=== PATIENT | male | born 1965 | race Caucasian/White ===

== ENCOUNTER 2017-06-30 18:14 | Observation (INO) | payer SELFPAY ==
[~2017-06-30] VITALS: Ht 170.2 cm; Wt 104.5 kg
[~2017-06-30 18:14] MED LIST: BACT800T5 PO; CEPH500C3 PO
[2017-06-30 18:15] VITALS: BP 140/106; PULSE 99; RESP 18; TEMP 97.8; O2SAT 99
[2017-06-30 19:04] LABS: BASOPHIL # 0.1 TH/MM3 (0-0.2); BASOPHIL % 1.3 % (0.0-2.0); EOSINOPHIL # 0.1 TH/MM3 (0-0.4); EOSINOPHIL % 2.2 % (0.0-4.0); HEMATOCRIT 45.8 % (39.0-51.0); LYMPH % 27.4 % (9.0-44.0); LYMPHOCYTE # 1.4 TH/MM3 (1.0-4.8); MEAN CELL VOLUME 95.8 FL (80.0-100.0); MEAN CORPUSCULAR HEMOGLOBIN 33.5 PG (27.0-34.0); MEAN CORPUSCULAR HGB CONC 34.9 % (32.0-36.0); MEAN PLATELET VOLUME 8.7 FL (7.0-11.0); MONOCYTE # 0.4 TH/MM3 (0-0.9); NEUT % 61.1 % (16.0-70.0); PLATELET COUNT 225 TH/MM3 (150-450); RED BLOOD COUNT 4.79 MIL/MM3 (4.50-5.90); RED CELL DISTRIBUTION WIDTH 12.9 % (11.6-17.2)
[2017-06-30 19:09] LABS: BICARBONATE 26.7 MEQ/L (21.0-32.0); BLOOD UREA NITROGEN 16 MG/DL (7-18); CALCIUM 9.2 MG/DL (8.5-10.1); CHLORIDE 100 MEQ/L (98-107); CREATININE 1.27 MG/DL (0.60-1.30); GLOMERULAR FILTRATION RATE 60 ML/MIN (>89); GLUCOSE,RANDOM 116 MG/DL (74-106); MAGNESIUM 2.1 MG/DL (1.5-2.5); SODIUM (NA) 133 MEQ/L (136-145)
[2017-06-30 19:13] LABS: TROPONIN I LESS THAN 0.02 NG/ML (0.02-0.05)
[2017-06-30] MEDS ORDERED: ASPI81CH6 CHEW (19:15)
[2017-06-30] MEDS ORDERED: AMLO10TA2 PO (19:15)
[2017-06-30] MEDS ORDERED: LOVA20TA PO (19:15)
[2017-06-30] MEDS ORDERED: LISI10TA3 PO (19:15)
[2017-06-30 19:16] VITALS: BP 107/75; PULSE 76; RESP 20; O2SAT 97
--- NOTE | 2017-06-30 19:17 | PD ---
HPI Chief Complaint: Chest Pain Time Seen by Provider: 19:15 Travel History International Travel<30 days: No Contact w/Intl Traveler<30days: No Traveled to known affect area: No History of Present Illness HPI The patient is a 51 year old male who presents to the [facility] [address] emergency department with a history of chest pain in the center of the chest that began 3 weeks ago. It is coming and going. It at times moves to the right chest. It is a burning sensation. Other lawson, he has a pressure sensation that is worsened with coughing that is present across his chest anteriorly. He denies any recent worsening cough or congestion. He smokes 1/2 ppd. He denies having any neck pain, shortness of breath, abdominal pain, vomiting, diarrhea, urinary symptoms , lower extremity edema, calf pain, or erythema, or or neurologic symptoms. He denies any prior history of DVT, PE, MS, or congestive heart failure. His last stress test was reportedly over a year ago. The patient is followed by Dr. Smith a local back facer for his cardiac care. He reports that he is followed by Dr. Smith for hypertension. The patient denies having any worsening recent indigestion or acid reflux symptoms. FORMERLY [facility] Past Medical History Narrative Medical The patient's past medical history is significant for hypertension, hyperlipidemia, tobacco use. Cardiovascular Problems: Yes (HTN, hyperlipidemia) High Cholesterol: Yes Hypertension: Yes Immunizations Current: Yes Past Surgical History Narrative Surgical The patient's past surgical history is significant for left partial foot amputation due a water sking accident, right ankle ORIF. Social History Alcohol Use: Yes (2 xper week) Tobacco Use: Yes (1/2 PPD) Substance Use: No Allergies-Medications (Allergen,Severity, Reaction): Coded Allergies: No Known Allergies (Verified Allergy, Unknown, 06/30/17) *MDRO Multi-Drug Resistant Organism (Verified Adverse Reaction, Unknown, ) MRSA arm wound 11/06/14 Reported Meds & Prescriptions Reported Meds & Active Scripts Active Reported Aspirin Low Dose (Aspirin) 81 Mg Chew 81 Mg CHEW DAILY Amlodipine (Amlodipine Besylate) 10 Mg Tab 10 Mg PO DAILY Lovastatin 20 Mg Tab 20 Mg PO DAILY Lisinopril 10 Mg Tab 10 Mg PO DAILY Review of Systems Except as stated in HPI: all other systems reviewed are Neg General / Constitutional: No: Fever Eyes: No: Visual changes HENT: No: Headaches, Congestion Cardiovascular: Positive: Chest Pain or Discomfort, No: Diaphoresis, Dyspnea on exertion Respiratory: Positive: Cough, No: Shortness of Breath Gastrointestinal: No: Nausea, Vomiting, Abdominal Pain Genitourinary: No: Dysuria Musculoskeletal: No: Pain Skin: No Rash Neurologic: No: Weakness, Focal Abnormalities, Change in Mentation, Slurred Speech, Sensory Disturbance Psychiatric: No: Depression Endocrine: No: Polydipsia Hematologic/Lymphatic: No: Easy Bruising Physical Exam Narrative General: The patient is a well-developed well-nourished male in no acute distress. Head and Neck exam: Head is normocephalic atraumatic. Eyes: EOMI, pupils are equal round and reactive to light. Nose: Midline septum with pink mucous membranes Mouth: Dentition unremarkable. Moist mucus membranes. Posterior oropharynx is not erythematous. No tonsillar hypertrophy. Uvula midline. Airway patent. Neck: No palpable lymphadenopathy. No nuchal rigidity. No thyromegaly. Cardiovascular: Regular rate and rhythm without murmurs, gallops, or rubs. Lungs: Clear to auscultation bilaterally. No wheezes, rhonchi, or rales. Abdomen: Soft, without tenderness to palpation in all 4 quadrants of the abdomen. No guarding, rebound, or rigidity. Normal bowel sounds are audible. No tenderness on palpation of McBurney's point. Extremities: No clubbing, cyanosis, or edema. 2+ pulses in all 4 extremities. The patient has deformity of his right lower extremity related to prior injury with skin grafting. Back: No costovertebral angle tenderness to palpation. Neurologic Exam: Grossly nonfocal. Skin Exam: No rash noted. Intact skin that is warm and dry. Data Data Last Documented VS Vital Signs Date Time Temp Pulse Resp B/P (MAP) Pulse Ox O2 Delivery O2 Flow Rate FiO2 06/30/17 19:16 76 20 107/75 (86) 97 Room Air 06/30/17 18:15 97.8 Orders Orders Electrocardiogram (06/30/17 18:21) Basic Metabolic Panel (Bmp) (06/30/17 18:21) Ckmb (Isoenzyme) Profile (06/30/17 18:21) Complete Blood Count With Diff (06/30/17 18:21) Magnesium (Mg) (06/30/17 18:21) Prothrombin Time / Inr (Pt) (06/30/17 18:21) Act Partial Throm Time (Ptt) (06/30/17 18:21) Troponin I (06/30/17 18:21) Chest, Pa & Lat (06/30/17 18:21) CKMB (06/30/17 18:16) CKMB% (06/30/17 18:16) D-Dimer (06/30/17 19:16) Aspirin Chew (Aspirin Chew) (06/30/17 19:30) Nitroglycerin 2% Oint (Nitroglycerin 2% (06/30/17 19:30) Admit Order (Ed Use Only) (06/30/17 20:40) Labs Laboratory Tests Test 06/30/17 18:16 White Blood Count 5.0 TH/MM3 Red Blood Count 4.79 MIL/MM3 Hemoglobin 16.0 GM/DL Hematocrit 45.8 % Mean Corpuscular Volume 95.8 FL Mean Corpuscular Hemoglobin 33.5 PG Mean Corpuscular Hemoglobin Concent 34.9 % Red Cell Distribution Width 12.9 % Platelet Count 225 TH/MM3 Mean Platelet Volume 8.7 FL Neutrophils (%) (Auto) 61.1 % Lymphocytes (%) (Auto) 27.4 % Monocytes (%) (Auto) 8.0 % Eosinophils (%) (Auto) 2.2 % Basophils (%) (Auto) 1.3 % Neutrophils # (Auto) 3.0 TH/MM3 Lymphocytes # (Auto) 1.4 TH/MM3 Monocytes # (Auto) 0.4 TH/MM3 Eosinophils # (Auto) 0.1 TH/MM3 Basophils # (Auto) 0.1 TH/MM3 CBC Comment DIFF FINAL Differential Comment Prothrombin Time 10.3 SEC Prothromb Time International Ratio 1.0 RATIO Activated Partial Thromboplast Time 27.4 SEC D-Dimer Quantitative (PE/DVT) 0.33 MG/L FEU Blood Urea Nitrogen 16 MG/DL Creatinine 1.27 MG/DL Random Glucose 116 MG/DL Calcium Level 9.2 MG/DL Magnesium Level 2.1 MG/DL Sodium Level 133 MEQ/L Potassium Level 3.9 MEQ/L Chloride Level 100 MEQ/L Carbon Dioxide Level 26.7 MEQ/L Anion Gap 6 MEQ/L Estimat Glomerular Filtration Rate 60 ML/MIN Total Creatine Kinase 129 U/L Creatine Kinase MB 0.7 NG/ML Troponin I LESS THAN 0.02 NG/ML MDM Medical Decision Making Medical Screen Exam Complete: Yes Emergency Medical Condition: Yes Medical Record Reviewed: Yes Interpretation(s) Last Impressions Chest X-Ray 06/30/17 182 Signed Impressions: Service Date/Time: Friday, June 30, 2017 18:52 - CONCLUSION: 1. No acute disease. 2. Age-indeterminate lower thoracic compression fracture. Juaquin Ceron Jr., MD Differential Diagnosis Acute coronary syndrome, versus musculoskeletal strain, versus pulmonary embolism, versus pleurisy, versus costochondritis, versus acid reflux Narrative Course During the course of the patients emergency department visit, the patients history, examination, and differential diagnosis were reviewed with the patient. The patient was placed on a systems qa analyst with oximetry and frequent blood pressure monitoring. The patient had IV access obtained and blood work sent for analysis. The patient had an ECG done on arrival that shows no acute ST segment elevation. The patient was initially provided aspirin 324 mg by mouth 1. Nitroglycerin 1 inch of paste was ordered to be placed in the chest wall. The patients laboratory studies were reviewed and remarkable for a CBC that is within normal limits, basic metabolic profile remarkable for a sodium of 133, glucose 116, initial set of cardiac enzymes within normal limits. PT PTT within normal limits, d-dimer 0.33 decreasing the likelihood of pulmonary embolism in this patient with no other significant risk factors Radiology studies were reviewed and remarkable for a chest x-ray that shows no acute cardiopulmonary disease, age indeterminate lower thoracic compression fracture. The patient will be admitted to the chest pain center for rule out serial cardiac enzyme protocol followed by a consideration of stress testing given his risk factors for coronary artery disease of hypertension, hyperlipidemia, and tobacco use. The patients results were discussed with the patient, including the plan of care. I explained that further testing and/ or monitoring is indicated based on the patients history, examination, and/ or laboratory findings. Therefore, I recommended admission for additional evaluation. The patient expressed understanding and was agreeable with this plan. The patient was admitted to the hospital in stable condition and sent to a bed under the care of the chest pain center. Diagnosis Primary Impression: Chest pain, rule out acute myocardial infarction Admitting Information Admitting Physician Requests: Cami Gomez MD Jun 30, 2017 19:17
[2017-06-30 19:18] LABS: PROTHROMBIN TIME - PATIENT 10.3 SEC (9.8-11.6)
--- NOTE | 2017-06-30 19:25 | RADRPT ---
EXAM DATE/TIME: 06/30/2017 18:52 [facility] COMPARISON: No previous studies available for comparison. INDICATIONS : Chest pain MEDICAL HISTORY : Hypertension. SURGICAL HISTORY : None. ENCOUNTER: Initial ACUITY: 4 - 6 days PAIN SCORE: 5/10 LOCATION: Bilateral chest FINDINGS: PA and lateral views of the chest demonstrate the lungs to be symmetrically aerated without evidence of mass, infiltrate or effusion. The cardiomediastinal contours are unremarkable. A compression defo rmity is seen involving the lower thoracic spine. Age-indeterminate on this study. CONCLUSION: 1. No acute disease. 2. Age-indeterminate lower thoracic compression fracture. Juaquin Ceron Jr., MD on June 30, 2017 at 19:21 Board Certified Radiologist. This report was verified electronically.
[2017-06-30 19:30] VITALS: BP 109/87; PULSE 74; RESP 19; O2SAT 98
[2017-06-30] MEDS ORDERED: ASPIRIN 81 MG CHEW TAB CHEW ONE (19:30)
[2017-06-30] MEDS ORDERED: NITROGLYCERIN 2% OINT 1 GM PACKET TOPICAL ONE (19:30)
[2017-06-30 20:30] VITALS: BP 138/93; PULSE 68; RESP 20; O2SAT 98
[2017-06-30] MEDS ORDERED: ACETAMINOPHEN 500 MG CPLT PO PRN (21:15)
[2017-06-30] MEDS ORDERED: SODIUM CHLORIDE 0.9% FLUSH 10 ML FLUSH IV FLUSH PRN (21:15)
[2017-06-30] MEDS ORDERED: ONDANSETRON HCL 4 MG/2 ML VIAL IV PUSH PRN (21:15)
[2017-06-30 21:40] VITALS: BP 149/90; PULSE 71; RESP 20; O2SAT 98
[2017-06-30 22:00] VITALS: O2SAT 97
[2017-06-30 22:40] LABS: TROPONIN I LESS THAN 0.02 NG/ML (0.02-0.05)
[2017-07-01 00:06] VITALS: BP 131/90; PULSE 66; RESP 18; TEMP 98.1; O2SAT 96
[2017-07-01 01:26] LABS: TROPONIN I LESS THAN 0.02 NG/ML (0.02-0.05)
[2017-07-01] MEDS ORDERED: NITROGLYCERIN 0.4 MG SL 25 TABS/BTL SL PRN (07:15)
[2017-07-01 08:00] VITALS: BP 125/84; PULSE 66; PULSE 75; RESP 16; TEMP 97.1; O2SAT 95
--- NOTE | 2017-07-01 08:13 | HHI.HP ---
HPI Primary Care Physician [place], [place] Chief Complaint Chest pain History of Present Illness 51-year-old male with history of current smoker, hypertension and hyperlipidemia presents to emergency room for further evaluation chest pain. Onset 3 weeks ago. Location substernal. Characterized as "pain, difficult to describe, not sharp, not pressure." Patient is a poor historian. Severity moderate. Reports intermittent radiation to right inframammary area, while other times radiation to bilateral inframammary area. Duration constant waxing and waning in intensity. No associated symptoms of nausea, vomiting, dyspnea, or diaphoresis. No known precipitating or relieving factors. Reports activity does not make pain worse. Does not hurt to take a deep breath. Denies similar pain in the past. No known injury or trauma. Review of Systems General: No fatigue,weakness, fever, chills, or recent illness change in appetite. Has been his general state of health. HEENT: No HODGES, no vision changes, no nasal congestion or drainage, no dysphasia CV: As stated above. Denies current chest discomfort, however reports a "deep inside pain" point under both left and right rib cage. RESP: No SOB, cough, wheeze, asthma, COPD, or recent URI. GI: No nausea or vomiting, bowel changes, diarrhea, constipation, pain, distention, melena, blood in the stool. No change in appetite, no unintentional weight gain or weight loss : No dysuria, urgency, frequency EXT: No lower leg edema, no paraesthesias MS: No discomfort or change in ROM, injury or trauma. NEURO: No difficulty with balance, LOC, motor/sensory deficits PSYCH: No anxiety, depression. SKIN: No rashes, no concerning lesions Past Family Social History Allergies: Coded Allergies: No Known Allergies (Verified Allergy, Unknown, 06/30/17) *MDRO Multi-Drug Resistant Organism (Verified Adverse Reaction, Unknown, ) MRSA arm wound 11/06/14 Past Medical History Hypertension, hyperlipidemia Past Surgical History Left foot partially amputated due ski accident age 16. Reported Medications Reported Meds & Active Scripts Active Reported Aspirin Low Dose (Aspirin) 81 Mg Chew 81 Mg CHEW DAILY Amlodipine (Amlodipine Besylate) 10 Mg Tab 10 Mg PO DAILY Lovastatin 20 Mg Tab 20 Mg PO DAILY Lisinopril 20mg PO QD Active Ordered Medications Current Medications Medications (Trade) Dose Ordered Sig/Katharine Route Start Time Stop Time Status Last Admin (NS Flush) 2 ml UNSCH PRN IV FLUSH 06/30/17 21:15 (NS Flush) 2 ml BID IV FLUSH 07/01/17 09:00 (Tylenol) 500 mg Q4H PRN PO 06/30/17 21:15 (Zofran Inj) 4 mg Q6H PRN IV PUSH 06/30/17 21:15 (Pepcid) 20 mg BID PO 07/01/17 09:00 (Nitrostat Sl) 0.4 mg Q5M PRN SL 07/01/17 07:15 (Aspirin) 325 mg DAILY PO 07/01/17 09:00 Family History Noncontributory for early onset cardiovascular disease. Social History Known hypertension and hyperlipidemia. No known diabetes or coronary artery disease. Current smoker 1/2 pack daily. This is decreased from 1-1/2-2 packs daily. Alcohol socially. Works for [employer], lives with girlfriend. Grown children Past cardiac testing Summer 2015 [facility] reported to be unremarkable. Testing ordered by [facility] as routine for slight abnormality on EKG. Followed with Dr. Smith in the past for hypertension. Physical Exam Vital Signs Vital Signs Date Time Temp Pulse Resp B/P (MAP) Pulse Ox O2 Delivery O2 Flow Rate FiO2 07/01/17 00:06 98.1 66 18 131/90 (104) 96 06/30/17 22:00 97 06/30/17 21:40 71 20 149/90 (109) 98 Room Air 06/30/17 20:30 68 20 138/93 (108) 98 Room Air 06/30/17 19:30 74 19 109/87 (94) 98 Room Air 06/30/17 19:16 76 20 107/75 (86) 97 Room Air 06/30/17 19:12 76 23 97 Room Air 06/30/17 18:15 97.8 99 18 140/106 (117) 99 Physical Exam GENERAL: Alert WN, WD, NAD, pleasant, obese, male HEAD: NC, AT EYES: Sclera clear, conjunctiva without injection, pupils equal and round ENT: Mucous membranes pink and moist CV: RRR, without murmur, rub, gallop, no JVD, S1-S2 no S3-S4. RESP: Clear lungs throughout bilateral, no crackles, wheeze, rhonchi, symmetrical chest rise, nonlabored, able to speak in full sentences ABD: Soft, NT, ND, no masses, positive bowel tones, obese EXT: Pulses +2 Right DT and Left PT, no dependent edema, left foot partially amputated MS: Normal tone 4 extremities, no obvious deformities, full range of motion NEURO: CN II through CN XII grossly intact, motor strength 5/5 PSYCH: A+O 3, pleasant affect, appropriate speech, mood, insight and judgment. Mild anxiety noted, asking many questions to determine if he ask lung cancer. SKIN: Normal turgor, normal texture, no lesions, no rashes, brisk cap refill, even hair distribution Laboratory Laboratory Tests Test 06/30/17 18:16 06/30/17 21:50 07/01/17 00:15 White Blood Count 5.0 Red Blood Count 4.79 Hemoglobin 16.0 Hematocrit 45.8 Mean Corpuscular Volume 95.8 Mean Corpuscular Hemoglobin 33.5 Mean Corpuscular Hemoglobin Concent 34.9 Red Cell Distribution Width 12.9 Platelet Count 225 Mean Platelet Volume 8.7 Neutrophils (%) (Auto) 61.1 Lymphocytes (%) (Auto) 27.4 Monocytes (%) (Auto) 8.0 Eosinophils (%) (Auto) 2.2 Basophils (%) (Auto) 1.3 Neutrophils # (Auto) 3.0 Lymphocytes # (Auto) 1.4 Monocytes # (Auto) 0.4 Eosinophils # (Auto) 0.1 Basophils # (Auto) 0.1 CBC Comment DIFF FINAL Differential Comment Prothrombin Time 10.3 Prothromb Time International Ratio 1.0 Activated Partial Thromboplast Time 27.4 D-Dimer Quantitative (PE/DVT) 0.33 Blood Urea Nitrogen 16 Creatinine 1.27 Random Glucose 116 Calcium Level 9.2 Magnesium Level 2.1 Sodium Level 133 Potassium Level 3.9 Chloride Level 100 Carbon Dioxide Level 26.7 Anion Gap 6 Estimat Glomerular Filtration Rate 60 Total Creatine Kinase 129 113 178 Creatine Kinase MB 0.7 0.6 0.6 Troponin I LESS THAN 0.02 LESS THAN 0.02 LESS THAN 0.02 Result Diagram: 06/30/17 1816 06/30/17 1816 Imaging Last 48 hours Impressions Chest X-Ray 06/30/17 0160 Signed Impressions: Service Date/Time: Friday, June 30, 2017 18:52 - CONCLUSION: 1. No acute disease. 2. Age-indeterminate lower thoracic compression fracture. Juaquin Ceron Jr., MD Course EKG Normal sinus rhythm, normal axis, no ST or T-segment changes Caprini VTE Risk Assessment Caprini VTE Risk Assessment: No/Low Risk (score <= 1) Caprini Risk Assessment Model Point Value = 1 Point Value = 2 Point Value = 3 Point Value = 5 Age 41-60 Minor surgery BMI > 25 kg/m2 Swollen legs Varicose veins or History of unexplained or recurrent spontaneous Oral contraceptives or hormone replacement Sepsis (< 1 month) Serious lung disease, including pneumonia (< 1 month) Abnormal pulmonary function Acute myocardial infarction Congestive heart failure (< 1 month) History of inflammatory bowel disease Medical patient at bed rest Age 61-74 Arthroscopic surgery Major open surgery (> 45 min) Laparoscopic surgery (> 45 min) Malignancy Confined to bed (> 72 hours) Immobilizing plaster cast Central venous access Age >= 75 History of VTE Family history of VTE Factor V Leiden Prothrombin [id number] Lupus anticoagulant Anticardiolipin antibodies Elevated serum homocysteine Heparin-induced thrombocytopenia Other congenital or acquired thrombophilia Stroke (< 1 month) Elective arthroplasty Hip, pelvis, or leg fracture Acute spinal cord injury (< 1 month) Prophylaxis Regimen Total Risk Factor Score Risk Level Prophylaxis Regimen 0-1 Low Early ambulation 2 Moderate Order ONE of the following: *Sequential Compression Device (SCD) *Heparin 5000 units SQ BID 3-4 Higher Order ONE of the following medications: *Heparin 5000 units SQ TID *Enoxaparin/Lovenox 40 mg SQ daily (WT < 150 kg, CrCl > 30 mL/min) *Enoxaparin/Lovenox 30 mg SQ daily (WT < 150 kg, CrCl > 10-29 mL/min) *Enoxaparin/Lovenox 30 mg SQ BID (WT < 150 kg, CrCl > 30 mL/min) AND/OR *Sequential Compression Device (SCD) 5 or more Highest Order ONE of the following medications: *Heparin 5000 units SQ TID (Preferred with Epidurals) *Enoxaparin/Lovenox 40 mg SQ daily (WT < 150 kg, CrCl > 30 mL/min) *Enoxaparin/Lovenox 30 mg SQ daily (WT < 150 kg, CrCl > 10-29 mL/min) *Enoxaparin/Lovenox 30 mg SQ BID (WT < 150 kg, CrCl > 30 mL/min) AND *Sequential Compression Device (SCD) Assessment and Plan Assessment and Plan #1 Atypical chest pain-admitted to chest pain center. Ruled out with 3 sets of EKGs, cardiac enzymes, monitor overnight. Will be seen and evaluated by Dr. Amber Washington. Discussed likelihood of completed an additional cardiac stress test this morning. This will be determined after evaluation by operating table assembler. Patient is agreeable to plan of care. If further cardiac testing does not suggest ischemia, plan to discharge follow-up with his PCP. #2 Hypertension-continue amlodipine and lisinopril. Encouraged weight loss, increasing daily activity, and low sodium diet. #3 Hyperlipidemia-continue lovastatin #4 Tobacco use-strongly encouraged and stressed the importance of tobacco cessation. Instructed to quit smoking. 0845 seen and evaluated by Dr. Amber Washington. Proceed with CT coronaries with evaluation of aorta. Spoke with radiologist prior to ordering CT coronaries to determine best imaging study. D dimer negative. [address] coronaries recommend follow up with a stress test. Discussed with Dr. Washington. Proceed with lexiscan this evening. If lexiscan unremarkable, plan to discharge home later this evening with follow up his PCP. Patient remains agreeable to plan of care. Gemma Dover Jul 01, 2017 08:13
[2017-07-01] MEDS ORDERED: FAMOTIDINE 20 MG TAB PO SCH (09:00)
[2017-07-01] MEDS ORDERED: LISINOPRIL 20 MG TAB PO SCH (09:00)
[2017-07-01] MEDS ORDERED: SODIUM CHLORIDE 0.9% FLUSH 10 ML FLUSH IV FLUSH SCH (09:00)
[2017-07-01] MEDS ORDERED: ASPIRIN 325 MG TAB PO SCH (09:00)
[2017-07-01] MEDS ORDERED: PRAVASTATIN SOD 20 MG TAB PO SCH (09:00)
[2017-07-01] MEDS ORDERED: NITROGLYCERIN 0.4 MG SL 25 TABS/BTL SL ONE (11:45)
[2017-07-01 12:00] VITALS: BP 116/79; PULSE 58; RESP 16; TEMP 96.1; O2SAT 96
[2017-07-01] MEDS ORDERED: IOHEXOL 350 MG/ML 10 ML VIAL (for RAD DIAG) IVCONTRAST ONE (12:43)
--- NOTE | 2017-07-01 14:41 | RADRPT ---
EXAM DATE/TIME: 07/01/2017 12:13 [facility] COMPARISON: No previous studies available for comparison. INDICATIONS : Chest pain. IV CONTRAST: 90 cc Omnipaque 350 (iohexol) IV ; Cumulative dose for multiple exams. RADIATION DOSE: 8.73 CTDIvol (mGy) MEDICAL HISTORY : Hypertension. SURGICAL HISTORY : Left foot amputation. ENCOUNTER: Initial ACUITY: 3 weeks PAIN SCALE: 5/10 LOCATION: chest TECHNIQUE: Volumetric scanning was obtained through the heart. Images were acquired on a multislice multiple ro w detector helical scanner timed for acquisition during peak arterial contrast. Images were reconstr ucted using a retrospective gating algorithm including single sector and multi-sector algorithms at m ultiple phases of the cardiac cycle. Images were interpreted using a combination of 2D and 3D visual ization modes including curved planar reformation, thin slab maximum intensity projection and volume rendering. Using automated exposure control and adjustment of the mA and/or kV according to patient size, radiation dose was kept as low as reasonably achievable to obtain optimal diagnostic quality im ages. DICOM format image data is available electronically for review and comparison. FINDINGS: VESSEL ANALYSIS: Noncontrast CT calcium scoring examination was performed prior to the procedure. This demonstrated to naun calcium score 432. This places the patient in the 90th percentile rank. That means 10% of males f rom a 51-55 of a higher calcium score. Postcontrast imaging: DOMINANCE: The coronary system is right dominant. LEFT MAIN: Normal-sized vessel with a calcified atherosclerotic plaque in its distal segment. No hemodynamically significant lesion is identified. LAD: Normal-sized vessel with both calcified and soft plaque evident in its proximal segment. There is a f ocal are of plaquing evident in the mid LAD. There is both hard and soft plaque present. This results in a borderline hemodynamically significant lesion. Stenosis is estimated to be in the range of 50%. Distally, the LAD is widely patent. CIRCUMFLEX: Normal vessel without calcification or stenosis. RCA: There is mild calcified atherosclerotic plaque evident in the proximal right coronary. No hemodynamic ally significant lesion is seen. OTHER: None. CONCLUSION: 1. The examination demonstrates scattered atherosclerotic plaquing with both calcified and soft plaqu e involving the LAD. This results in borderline hemodynamically significant stenosis. Further workup with stress myocardial examination would be warranted. 2. Scattered, mild atherosclerotic plaquing in the distal left main coronary and in the proximal righ t coronary. These do not appear to result in hemodynamically significant disease. Leonardo Lugo MD on July 01, 2017 at 14:24 Board Certified Radiologist. This report was verified electronically.
--- NOTE | 2017-07-01 15:06 | RADRPT ---
EXAM DATE/TIME: 07/01/2017 11:51 [facility] COMPARISON: No previous studies available for comparison. INDICATIONS : Aortic dissection, chest pain IV CONTRAST: 90 cc Omnipaque 350 (iohexol) IV ; Cumulative dose for multiple exams. RADIATION DOSE: 17.06 CTDIvol (mGy) MEDICAL HISTORY : Hypertension. SURGICAL HISTORY : Left foot amputation ENCOUNTER: Initial ACUITY: 3 weeks PAIN SCALE: 5/10 LOCATION: chest TECHNIQUE: Volumetric scanning of the chest was performed. Using automated exposure control and adjustment of t he mA and/or kV according to patient size, radiation dose was kept as low as reasonably achievable to obtain optimal diagnostic quality images. DICOM format image data is available electronically for review and comparison. Follow-up recommendations for detected pulmonary nodules are based at a minimum on nodule size and pa tient risk factors according to Fleischner Society Guidelines. FINDINGS: LUNGS: There is no consolidation or pneumothorax. No concerning pulmonary nodule is visualized. PLEURA: There is no pleural thickening or pleural effusion. MEDIASTINUM: The heart and great vessels demonstrate no acute abnormality. The ascending aorta measures up to 3.9 cm. Descending thoracic aorta is tortuous but non-aneurysmal. Coronary artery calcification is prese nt. There is no mediastinal or hilar lymphadenopathy. AXILLAE: Within normal limits. No lymphadenopathy. SKELETAL: There are mild degenerative changes of the thoracic spine. MISCELLANEOUS: The visualized upper abdominal organs demonstrate no acute abnormality. CONCLUSION: 1. No acute abnormality is identified within the chest. No aneurysm or dissection is present. 2. Coronary artery calcification. Andrea Castillo MD on July 01, 2017 at 14:59 Board Certified Radiologist. This report was verified electronically.
[2017-07-01 16:00] VITALS: BP 107/70; PULSE 58; RESP 17; TEMP 96.2; O2SAT 95
--- NOTE | 2017-07-01 16:53 | EKG ---
Date Performed: 06/30/2017 Time Performed: 18:32:33 PTAGE: 51 years EKG: Sinus rhythm NORMAL ECG NO PREVIOUS TRACING DOCTOR: Amber Washington Interpretating Date/Time 07/01/2017 16:52:36
--- NOTE | 2017-07-01 16:55 | EKG ---
Date Performed: 06/30/2017 Time Performed: 22:07:05 PTAGE: 51 years EKG: Sinus rhythm NORMAL ECG Since PREVIOUS TRACING , no significant change noted PREVIOUS TRACIN06/30/2017 18.32 DOCTOR: Amber Washington Interpretating Date/Time 07/01/2017 16:52:59
--- NOTE | 2017-07-01 16:55 | EKG ---
Date Performed: 07/01/2017 Time Performed: 00:11:36 PTAGE: 51 years EKG: Sinus rhythm NORMAL ECG Since PREVIOUS TRACING , no significant change noted PREVIOUS TRACIN06/30/2017 22.07 DOCTOR: Amber Washington Interpretating Date/Time 07/01/2017 16:53:37
[2017-07-01] MEDS ORDERED: REGADENOSON INJ 0.4 MG/5 ML SYR ONE (16:57)
--- NOTE | 2017-07-01 17:16 | HHI.DCPOC ---
Discharge Care Plan Diagnosis: (1) Atypical chest pain (2) Tobacco abuse Goals to Promote Your Health * To prevent worsening of your condition and complications * To maintain your health at the optimal level Directions to Meet Your Goals Take your medications as prescribed Follow your dietary instruction Follow activity as directed Keep your appointments as scheduled Take your immunizations and boosters as scheduled If your symptoms worsen call your PCP, if no PCP go to Urgent Care Center or Emergency Room Smoking is Dangerous to Your Health. Avoid second hand smoke Call the 24-hour hour crisis hotline for domestic abuse at [facility] Jul 01, 2017 17:16
--- NOTE | 2017-07-01 18:23 | RADRPT ---
EXAM DATE/TIME: 07/01/2017 16:57 [facility] COMPARISON: No previous studies available for comparison. INDICATIONS : Substernal chest pain. Angina. DOSE: 35 mCi Tc99m Myoview at stress. 11 mCi Tc99m Myoview at rest. 0.4 mg Lexiscan STRESS SYMPTOMS: Dyspnea and nausea. EJECTION FRACTION: 62% MEDICAL HISTORY : Hypertension. SURGICAL HISTORY : Left foot partial amputation. ENCOUNTER: Initial ACUITY: 3 weeks PAIN SCALE: 5/10 LOCATION: Substernal chest TECHNIQUE: The patient underwent pharmacologic stress with infusion of prescribed dose. Continuous ECG tracing was monitored during stress. Gated SPECT imaging was performed after stress and conventional SPECT i maging was performed at rest. The examination was performed on a SPECT/CT scanner, both attenuation and non-corrected datasets were reviewed. FINDINGS: DISTRIBUTION: The maximum perfused segment at stress is in the lateral wall. PERFUSION STUDY: The pattern of perfusion at stress is within normal limits. GATED STUDY: There is intact wall motion and thickening without hypokinetic or dyskinetic segments. CONCLUSION: No reversible defects observed to suggest acute ischemia. RISK CATEGORY: Low Juaquin Ceron Jr., MD on July 01, 2017 at 18:17 Board Certified Radiologist. This report was verified electronically.
--- NOTE | 2017-07-04 12:05 | TR ---
Date Performed: 07/01/2017 Time Performed: 17:20:33 DOCTOR: Kelvin Mcwilliams DRUG LIST: CLINICAL HISTORY: CHEST PAIN REASON FOR TEST: CHEST PAIN REASON FOR ENDING: OBSERVATION: CONCLUSION: Lexiscan stress test was performed under standard four minute protocol. Radionuclide was injected one minute prior to ending the test. No electrocardiographic abormalities were present to suggest ischemia. Nuclear imaging and interpretation are pending. COMMENTS:
== END 2017-07-01 19:50 | disposition home or self-care (01) ==
LOC: NEPC 18:14 → NEDA 20:42 → NEPGCP 22:22
PROVIDERS: ADMIT Internal Medicine Cardiovascular Disease; ATTEND Internal Medicine Cardiovascular Disease
DX: R07.89 Other chest pain (principal); I10 Essential (primary) hypertension; E78.00 Pure hypercholesterolemia, unspecified; F17.200 Nicotine dependence, unspecified, uncomplicated; Z79.899 Other long term (current) drug therapy; Z79.82 Long term (current) use of aspirin
CPT/HCPCS: 71046; 71260; 75574; 78452; 80048; 82550; 82552; 83735; 84484; 85025; 85379; 85610; 85730; 93005; 93017; 99285; A9502; G0378; J2785; Q9967